=== PATIENT | male | born 1975 | race Caucasian/White ===

== ENCOUNTER → 2021-03-04 14:38 | Outpatient (BNVA) | payer SELFPAY | PROVIDERS: Visit Provider Nurse Practitioner | DX: M25.519 Pain in unspecified shoulder (principal) | CPT/HCPCS: 73030 ==

== ENCOUNTER → 2021-06-25 18:34 | Outpatient (BNVA) | payer OTHER, SELFPAY | PROVIDERS: Visit Provider Nurse Practitioner | DX: Z20.822 Contact with and (suspected) exposure to COVID-19 (principal); B34.9 Viral infection, unspecified | CPT/HCPCS: 87635 ==

== ENCOUNTER → 2021-06-26 15:43 | Outpatient (BNVA) | payer SELFPAY | PROVIDERS: Visit Provider Nurse Practitioner | DX: B34.9 Viral infection, unspecified (principal) | CPT/HCPCS: 87801 ==

== ENCOUNTER 2022-03-13 21:41 | Emergency (ER) | payer SELFPAY ==
--- NOTE | 2022-03-13 21:42 | XRR_ITS ---
PROCEDURE INFORMATION: Exam: XR Chest Exam date and time: 03/13/2022 9:55 PM Age: 46 years old Clinical indication: Angina; Additional info: Cp TECHNIQUE: Imaging protocol: Radiologic exam of the chest. Views: 1 view. COMPARISON: CR XR shoulder LT min 2V* [id number] 03/04/2021 2:41 PM FINDINGS: Lungs: Emphysematous/bullous changes in the apical regions. No obvious lung consolidation. Pleural spaces: Unremarkable. No pleural effusion. No pneumothorax. Heart/Mediastinum: No cardiomegaly. Bones/joints: No acute findings. XR/XR chest 1V portable 00005 IMPRESSION: No acute findings. Emphysematous disease/bullous changes as described.
[2022-03-13 21:43] VITALS: BP 137/93; PULSE 79; RESP 18; TEMP 36.8; O2SAT 97
--- NOTE | 2022-03-13 21:50 | ED_ITS ---
HPI - Chest Pain General: Chief Complaint: Chest Pain Stated Complaint: CHEST PAIN Time Seen by Provider: 03/13/22 21:42 Source: patient and EMS Mode of arrival: EMS Limitations: no limitations History of Present Illness: 46-year-old male who is currently at [facility] states he has been there for a couple weeks for methamphetamine abuse. He states that last 3 nights he been having some reflux states he does get reflux regularly he states tonight it seemed different and he states it is burning in his left chest and its not typical [facility] he called EMS states that he had no treatments and is currently pain-free he states that it resolved roughly 30 minutes ago the pain began about an hour ago. Denies any shortness of breath denies any nausea denies any diaphoresis. Associated symptoms: Deny abdominal pain, dyspnea, fever(s), nausea or vomiting Review of Systems Const: Denies: fever(s), chills, body aches or change in appetite Eyes: Denies: blurry vision or eye discomfort ENMT: Denies: throat pain or dental pain Card: Reports: chest pain Resp: Denies: dyspnea GI: Denies: abdominal pain, nausea, vomiting or diarrhea : Denies: dysuria Musc: Denies: neck pain or back pain Skin/Breast: Denies: rash Neuro: Denies: headache(s) Psych: Denies: depression Butch/Lymph: Denies: easy bruising All/Imm: Denies: urticaria PFSH ED PFSH: Medical History (Updated 03/13/22 @ 22:31 by Mayito Fernandez MD) Methamphetamine abuse Social History Smoking and tobacco status: current every day smoker Physical Exam Const: COMMON NORMALS: no acute distress, patient oriented x3 and healthy appearing HENMT: COMMON NORMALS: normocephalic and atraumatic HEAD & SCALP: normocephalic and atraumatic Eye: COMMON NORMALS: Equal, round and reactive pupils present and EOMs intact bilaterally PUPIL: Yes Equal, round and reactive pupils present Neck/C-Spine: COMMON NORMALS: full ROM and supple Chest: COMMONS NORMALS: normal inspection of the chest and normal palpation of entire chest wall Resp: COMMON NORMALS: normal respiratory effort, No retractions, No use of accessory muscles and clear to auscultation bilaterally AUSCULTATION: clear to auscultation bilaterally Cardio: COMMON NORMALS: regular rate, regular rhythm and No murmurs present (Cardio) RATE: regular rate RHYTHM: regular rhythm GI: COMMON NORMALS: Normal to inspection, nondistended, normoactive bowel sounds present, Soft to palpation, non-tender and no masses PALPATION: Yes Soft to palpation Extremity: COMMON NORMALS: normal to inspection and full ROM Neuro: COMMON NORMALS: patient oriented x3, moves all extremities and no focal motor deficits Psych: COMMON NORMALS: mental status grossly normal, Normal thought process present and cooperative THOUGHT PROCESS: Normal thought process present Skin: COMMON NORMALS: no rashes or lesions noted and no wounds GENERAL SKIN EXAM: no rashes or lesions noted Course Vital Signs: Vital signs: Vital Signs Temperature 98.2 F 03/13/22 21:43 Pulse Rate 79 03/13/22 21:43 Respiratory Rate 18 03/13/22 21:43 Blood Pressure 137/93 03/13/22 21:43 Pulse Oximetry 97 03/13/22 21:43 Oxygen Delivery Me thod 03/13/22 21:43 MDM - Chest Pain Medical Decision Making Patient presents here with chest pains atypical in nature and likely reflux he has been pain-free here troponin EKG are normal he has no signs of acute coronary syndrome he is stable for discharge back to [facility] if worsening. Lab Data : 03/13/22 21:50 03/13/22 21:50 Radiology Impressions Chest X-Ray 03/13/22 21:42 IMPRESSION: No acute findings. Emphysematous disease/bullous changes as described. Laboratory Results WBC 9.2 10^3/uL (4.0-10.0) 03/13/22 21:50 RBC 4.99 10^6/uL (4.1-5.3) 03/13/22 21:50 Hgb 15.4 g/dL (11.7-16.6) 03/13/22 21:50 Hct 44.8 % (42.0-52.0) 03/13/22 21:50 MCV 89.8 fl (80-94) 03/13/22 21:50 MCH 30.9 pg (28.0-34.0) 03/13/22 21:50 MCHC 34.4 g/dL (30.0-36.0) 03/13/22 21:50 RDW 12.9 % (12.1-15.1) 03/13/22 21:50 Plt Count 232 10^3/cmm (130-400) 03/13/22 21:50 MPV 8.9 fL (7.4-10.4) 03/13/22 21:50 Neut % (Auto) 55.7 % 03/13/22 21:50 Lymph % (Auto) 27.6 % 03/13/22 21:50 Sampson % (Auto) 7.5 % 03/13/22 21:50 Eos % (Auto) 7.7 % 03/13/22 21:50 Baso % (Auto) 1.1 % 03/13/22 21:50 Neut # (Auto) 5.15 10^3/uL (1.8-7.7) 03/13/22 21:50 Lymph # (Auto) 2.6 10^3/uL (0.8-4.8) 03/13/22 21:50 Sampson # (Auto) 0.7 10^3/uL (0.2-0.9) 03/13/22 21:50 Eos # (Auto) 0.7 10^3/uL (0.0-0.8) 03/13/22 21:50 Baso # (Auto) 0.1 10^3/uL (0.0-0.1) 03/13/22 21:50 Nucleated RBC % (auto) 0 % 03/13/22 21:50 Nucleated RBCs # 0.0 /100WBC 03/13/22 21:50 Sodium 138 mmol/L (136-145) 03/13/22 21:50 Potassium 3.9 mmol/L (3.5-5.1) 03/13/22 21:50 Chloride 102 mmol/L (98-107) 03/13/22 21:50 Carbon Dioxide 27 mmol/L (22-29) 03/13/22 21:50 Anion Gap 12.9 (5-19) 03/13/22 21:50 BUN 11 mg/dL (6-20) 03/13/22 21:50 Creatinine 1.1 mg/dL (0.7-1.2) 03/13/22 21:50 GFR Calculation 71.8 mL/min (90-130) L 03/13/22 21:50 Glucose 93 mg/dL (65-115) 03/13/22 21:50 Calculated Osmolality 285 mOsm/kg (285-295) 03/13/22 21:50 Calcium 9.1 mg/dL (8.5-10.5) 03/13/22 21:50 Total Bilirubin 0.2 mg/dL (0.15-1.2) 03/13/22 21:50 AST 32 U/L (0-40) 03/13/22 21:50 ALT 39 U/L (0-41) 03/13/22 21:50 Alkaline Phosphatase 99 U/L (40-130) 03/13/22 21:50 Troponin T Baseline 6 ng/L (0-15) 03/13/22 21:50 Total Protein 6.2 g/dL (6.6-8.7) L 03/13/22 21:50 Albumin 3.8 g/dL (3.5-5.2) 03/13/22 21:50 Globulin 2.4 g/dL (1.3-4.6) 03/13/22 21:50 EKG Data EKG 1: I personally reviewed and interpreted this EKG as follows: EKG interpretation date: 03/13/22 EKG interpretation time: 21:51 Interpretation: nsr hr [address] or t wave abnormalities qrs 78 qtc 373 Discharge Plan Discharge Patient Disposition: Home Clinical Impression: Chest pain Condition: Stable Prescriptions: No Action No Known Home Medications Discharge Orders: Discharge ED (Routine); Ordered 03/13/22 Ordered By: Mayito Fernandez Discharge Diet: Advance as tolerated Discharge Activity: Resume usual activity Patient Instructions: Chest Pain (ED) Coding Level of Care Code ED Supervisor Graphite for Chg Fwd Exam Comprehensive
--- NOTE | 2022-03-13 21:51 | ECG_ITS ---
[facility] Test Date: 2022-03-13 Pat Name: Felix Henderson Department: Room: Gender: Male System Operation Superintendent: : 1975 Requested By: Mayito Fernandez Order Number: [id number] Vanessa MD: Bala Prabhakar M.D. Measurements Intervals Spencer Rate: 79 P: 51 DE: 170 QRS: 64 QRSD: 78 T: 65 QT: 338 QTc: 389 Interpretive Statements SINUS RHYTHM No previous ECG available for comparison Electronically Signed On 03-13-2022 22:03:02 CDT by Bala Prabhakar M.D. [email or web address]
[2022-03-13 22:04] LABS: Basophils # 0.1 10^3/uL (0.0-0.1); Basophils % 1.1 %; Eosinophils # 0.7 10^3/uL (0.0-0.8); Eosinophils % 7.7 %; Hematocrit 44.8 % (42.0-52.0); Hemoglobin 15.4 g/dL (11.7-16.6); Lymphocytes # 2.6 10^3/uL (0.8-4.8); Lymphocytes % 27.6 %; Mean Corpuscular HGB Conc 34.4 g/dL (30.0-36.0); Mean Corpuscular Hemoglobin 30.9 pg (28.0-34.0); Mean Corpuscular Volume 89.8 fl (80-94); Mean Platelet Volume 8.9 fL (7.4-10.4); Monocytes # 0.7 10^3/uL (0.2-0.9); Monocytes % 7.5 %; Neutrophils # 5.15 10^3/uL (1.8-7.7); Neutrophils % 55.7 %; Nucleated Red Blood Cells % 0 %; Platelet Count 232 10^3/cmm (130-400); Red Blood Count 4.99 10^6/uL (4.1-5.3); Red Cell Distribution Width 12.9 % (12.1-15.1); White Blood Count 9.2 10^3/uL (4.0-10.0)
[2022-03-13 22:26] LABS: Troponin(5th) Baseline 6 ng/L (0-15)
[2022-03-13 22:27] LABS: Alanine Aminotransferase 39 U/L (0-41); Albumin Level 3.8 g/dL (3.5-5.2); Alkaline Phosphatase 99 U/L (40-130); Anion Gap 12.9 (5-19); Aspartate Amino Transferase 32 U/L (0-40); Blood Urea Nitrogen 11 mg/dL (6-20); Calcium 9.1 mg/dL (8.5-10.5); Carbon Dioxide 27 mmol/L (22-29); Chloride 102 mmol/L (98-107); Globulin 2.4 g/dL (1.3-4.6); Glomerular Filtration Rate 71.8 mL/min (90-130); Glucose 93 mg/dL (65-115); Osmolality Calculated 285 mOsm/kg (285-295); Potassium 3.9 mmol/L (3.5-5.1); Sodium 138 mmol/L (136-145); Total Bilirubin 0.2 mg/dL (0.15-1.2); Total Protein 6.2 g/dL (6.6-8.7)
[2022-03-13] MEDS: lidocaine 2% viscous 15 ML, aluminum-mag hydrox-simethicon 30 ML, sucralfate oral liq 1 GM PO (23:01)
[2022-03-13 23:40] VITALS: BP 138/90; PULSE 80; RESP 20; O2SAT 97
== END 2022-03-13 23:41 | disposition home or self-care (01) ==
PROVIDERS: Emergency Provider Emergency Medicine
DX: R07.9 Chest pain, unspecified (principal); F17.210 Nicotine dependence, cigarettes, uncomplicated
CPT/HCPCS: 71045; 80053; 84484; 85025; 93005; 99285

== ENCOUNTER 2022-12-18 11:45 | Outpatient (CLI) | payer OTHER, SELFPAY ==
--- NOTE | 2022-12-18 12:07 | XR_ITS ---
WS: [id number] XR lumbar spine 2-3V* [id number] REASON FOR EXAM: lower back pain FINDINGS: Normal lumbar curvatures. Normal vertebral bodies. Intervertebral disc spaces are intact and well preserved. No spondylolysis or spondylolisthesis. Normal facet joints. XR/XR lumbar spine 2-3V* [id number] IMPRESSION: No significant abnormality.
== END 2022-12-18 11:46 | disposition home or self-care (01) ==
PROVIDERS: PCP Family Medicine; Visit Provider Family Medicine
DX: M54.50 Low back pain, unspecified (principal); G89.29 Other chronic pain; F15.10 Other stimulant abuse, uncomplicated
CPT/HCPCS: 72100; 80053; 80061; 84439; 84443; 85025

== ENCOUNTER 2023-10-21 20:45 | Emergency (ER) | payer OTHER, SELFPAY ==
[2023-10-21 20:47] VITALS: BP 128/86; PULSE 85; RESP 16; TEMP 36.3; O2SAT 100; BMI 18.7
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
[2023-10-21] MEDS: ketorolac 60 mg/2 mL INJ IM (21:07)
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
[2023-10-21 22:09] VITALS: PULSE 76; RESP 16; O2SAT 96
== END 2023-10-21 22:10 | disposition home or self-care (01) ==
PROVIDERS: Emergency Provider Physician Assistant; PCP Family Medicine
DX: S90.01XA Contusion of right ankle, initial encounter (principal); F17.210 Nicotine dependence, cigarettes, uncomplicated; W23.1XXA Caught, crushed, jammed, or pinched between stationary objects, initial encounter
CPT/HCPCS: 73610; 73630; 96372; 99284; J1885